=== PATIENT | male | born 1945 | race Caucasian/White ===

== ENCOUNTER 2019-03-26 05:30 | Outpatient (CLI) | payer MEDICARE, OTHER ==
[~2019-03-26] VITALS: Ht 175.3 cm; Wt 89.1 kg
[2019-03-26] MEDS ORDERED: GARL10002 PO (15:07)
[2019-03-26] MEDS ORDERED: ASCO-262 PO (15:07)
[2019-03-26] MEDS ORDERED: LISI-552 PO (15:07)
[2019-03-26] MEDS ORDERED: AMLO5TAB9 PO (15:07)
[2019-04-01] MEDS ORDERED: CIPR-226 PO (11:53)
[2019-04-01] MEDS ORDERED: ACET1TAB43 PO (11:54)
== END 2019-03-26 15:10 | disposition home or self-care (01) ==
LOC: PREOP 05:30
PROVIDERS: ATTEND Radiology Radiation Oncology
DX: Z01.818 Encounter for other preprocedural examination (principal)

== ENCOUNTER 2019-04-30 10:56 | Outpatient (RCR) | payer MEDICARE, OTHER ==
[~2019-04-30 10:56] MED LIST: ACET1TAB43 PO; AMLO5TAB9 PO; ASCO-262 PO; CIPR-226 PO; GARL10002 PO; LISI-552 PO
[2019-04-30 11:38] LABS: BUN/CREATININE RATIO 12; CREATININE SERUM 1.06 MG/DL (0.60-1.30); GFR ESTIMATED > 60
== END 2019-05-17 | disposition home or self-care (01) ==
LOC: ONC 10:56
PROVIDERS: ATTEND Radiology Radiation Oncology
DX: C61 Malignant neoplasm of prostate (principal)
CPT/HCPCS: 76873; 77290; 82565; 84520; 99205